=== PATIENT | male | born 1950 | race Caucasian/White ===

== ENCOUNTER 2021-06-25 12:55 | Emergency (ER) | payer OTHER ==
[~2021-06-25] VITALS: Ht 177.8 cm; Wt 67.6 kg
[2021-06-25] MEDS ORDERED: COZAAR100 MG (13:08)
[2021-06-25] MEDS ORDERED: AMLODIPINE-OLM1 EAC1 (13:09)
== END 2021-06-25 16:55 | disposition home or self-care (01) ==
LOC: ER 12:55
DX: M94.0 Chondrocostal junction syndrome [Tietze] (principal)